=== PATIENT | male | born 1995 | race Caucasian/White ===

== ENCOUNTER 2018-06-09 08:55 | Day surgery (SDC) | payer OTHER ==
[~2018-06-09 08:55] MED LIST: LR 1,000 ML IV
[2018-06-09] MEDS ORDERED: PROPOFOL 200 MG/20 ML VIAL As Ordered (09:17)
[2018-06-09] MEDS ORDERED: LIDOCAINE 2% INJ 100 MG/5 ML SDV (FOR ANES.) As Ordered (09:17)
[2018-06-09] MEDS ORDERED: MIDAZOLAM INJ 2 MG/2 ML VIAL (J2250) As Ordered (09:18)
[2018-06-09] MEDS ORDERED: fentaNYL 250 MCG/5 ML INJECTION (J3010) As Ordered (09:18)
[2018-06-09] MEDS: LIDOCAINE 1% SDV INJ 30 ML VIAL As Ordered (11:33)
[2018-06-09] MEDS ORDERED: dexameTHASONE 4 MG/ML 1ML VIAL (J1100) As Ordered ×2 (11:40)
[2018-06-09] MEDS ORDERED: ONDANSETRON 4MG/2ML VIAL (J2405) As Ordered (11:40)
[2018-06-09] MEDS ORDERED: KETOROLAC 60 MG/2 ML VIAL (J1885) As Ordered (11:40)
[2018-06-09] MEDS: BACITRACIN OINT 30GM As Ordered (12:02)
[2018-06-09] MEDS ORDERED: MEPERIDINE INJ 25 MG/ML VIAL (J2175) As Ordered (12:25)
[2018-06-09] MEDS: MEPERIDINE INJ 25 MG/ML VIAL (J2175) IV ×2 (12:27→12:32)
[2018-06-09] MEDS ORDERED: LR 1,000 ML IV (12:30)
[2018-06-09] MEDS ORDERED: ONDANSETRON 4MG/2ML VIAL (J2405) IV (12:30)
[2018-06-09] MEDS ORDERED: METOCLOPRAMIDE INJ 10MG/2ML VIAL (J2765) IV (12:30)
[2018-06-09] MEDS ORDERED: fentaNYL 100 MCG/2 ML INJECTION (J3010) IV (12:30)
[2018-06-09] MEDS: PERCOCET 5MG/325MG TAB PO (12:53)
== END 2018-06-09 13:55 | disposition home or self-care (01) ==
LOC: M SDC 08:55
DX: N48.1 Balanitis (principal); N48.89 Other specified disorders of penis; T88.59XD Other complications of anesthesia, subsequent encounter; Z72.0 Tobacco use; Z87.81 Personal history of (healed) traumatic fracture
CPT/HCPCS: 54161

== ENCOUNTER 2018-08-02 19:36 | Emergency (ER) | payer OTHER ==
[~2018-08-02] VITALS: Ht 180.3 cm; Wt 70.5 kg
[~2018-08-02 19:36] MED LIST changes: -LR 1,000 ML IV; +OXYC1TAB23 PO; +TYLE325T5 PO
[2018-08-02] MEDS ORDERED: IBUPROFEN 800 MG TAB PO ONE (21:15)
[2018-08-02] MEDS ORDERED: AUGMENTIN 875 MG TAB PO ONE (21:15)
[2018-08-02] MEDS ORDERED: ADACEL/BOOSTRIX VACCINE (DIPHTH/PERTUSS/ACELL/TETANUS)0.5ML SYR (90715) IM ONE (21:15)
[2018-08-02] MEDS ORDERED: LIDOCAINE 1% MDV 20ML VIAL IM ONE (21:30)
[2018-08-02] MEDS ORDERED: ACETAMINOPHEN 325 MG TAB PO ONE (21:30)
[2018-08-02] MEDS ORDERED: AMOX875T2 PO (22:31)
[2018-08-02 22:32] VITALS: BP 107/60
--- NOTE | 2018-08-03 07:53 | REP ---
Clinical: Trauma. 3rd digit bite. Technique: AP, lateral, bilateral oblique views left hand . Findings: The osseous structures and joint spaces are intact and normal. There is no evidence for acute fracture or dislocation. Surrounding soft tissues are unremarkable. No subcutaneous emphysema or radiodense foreign body. Impression: Normal left hand series . No acute fracture or dislocation. Electronically Signed by James Ortega MD 08/03/2018 07:45 A
== END 2018-08-02 22:45 | disposition home or self-care (01) ==
LOC: M ED 19:36
DX: S54.02XA Injury of ulnar nerve at forearm level, left arm, initial encounter (principal); S61.213A Laceration without foreign body of left middle finger without damage to nail, initial encounter; S60.511A Abrasion of right hand, initial encounter; S60.512A Abrasion of left hand, initial encounter; W22.8XXA Striking against or struck by other objects, initial encounter; Y92.008 Other place in unspecified non-institutional (private) residence as the place of occurrence of the external cause; F17.210 Nicotine dependence, cigarettes, uncomplicated